=== PATIENT | female | born 1945 | race Caucasian/White ===

== ENCOUNTER → 2017-01-10 | Outpatient (CLI) | payer BC, MEDICARE, OTHER ==
[2016-07-27 08:14] VITALS: BP 135/75
--- NOTE | 2017-01-10 15:19 | RAD ---
DATE: 01/10/2017 EXAM: DIGITAL DIAGNOSTIC LT, BREAST LEFT HISTORY: Breast nodule COMPARISON: 08/30/2015 This study was interpreted with the benefit of Computerized Aided Detection (CAD). The breast parenchyma is heterogeneously dense, which could reduce the sensitivity of mammography. Breast parenchyma level C. FINDINGS: 2-D and 3-D tomosynthesis imaging was performed in CC and MLO projections. The fibroglandular pattern is nodular in character. The majority of these densities are unchanged. There are unchanged lymph node type densities projected over the axillary tail region of the left breast. There is a 8 mm nodule with associated architectural distortion and mild spiculation now evident at the 4:00 location. This is best visualized on axial tomograms #16 and oblique tomogram #17. No other new or enlarging breast density is seen. Benign type calcifications are present. No suspicious microcalcifications have developed. Left breast ultrasound, 01/10/2017: A targeted ultrasound exam of the left breast was performed. We first targeted the palpable lesion at the 1:00 location. At that level there is a 4 mm subcutaneous nodule abutting the undersurface of the skin. It is rounded and demonstrates heterogeneous internal echoes. No color flow is seen within this structure. It may be a skin related lesion such as a sebaceous cyst. We then targeted the suspicious nodule seen on the mammograms at the 4:00 location. Approximately 2.5 cm from the nipple at the 4:00 location there is a 7 mm hypoechoic nodule which demonstrates internal color flow. Some of its margins are smooth while others are slightly irregular. This probably corresponds to the suspicious nodule seen on the mammograms. There is a nearby 8-9 mm nodule at the 3:30 location in the left breast which demonstrates smooth margins and posterior acoustic shadowing. There is no internal color flow. This appearance suggests a simple cyst. IMPRESSION: 1. Slightly spiculated solid nodule at the 4:00 location, suspicious for malignancy. Ultrasound-guided biopsy is suggested for further evaluation. 2. Small complex superficial subcutaneous nodule at the 1:00 location which corresponds to the area of palpable concern. This may represent a skin related lesion such as a sebaceous cyst. 3. Several other stable left breast nodules are present including a simple cyst at the 3:30 location. Note: The cardiopulmonary technologist notified the patient of the recommendation for biopsy, at the time of this exam. BI-RADS CATEGORY: 4 SUSPICIOUS ABNORMALITY- BIOPSY SHOULD BE CONSIDERED RECOMMENDED FOLLOW-UP: BIO BIOPSY RECOMMENDED PQRS compliance statement: Patient information was entered into a reminder system with a target due date for the next mammogram. Mammography is a sensitive method for finding small breast cancers, but it does not detect them all and is not a substitute for careful clinical examination. A negative mammogram does not negate a clinically suspicious finding and should not result in delay in biopsying a clinically suspicious abnormality. "Our facility is accredited by the [employer] Mammography Program."
== END | disposition home or self-care (01) ==
LOC: MAMMO 13:06
PROVIDERS: ATTEND Family Medicine
DX: N63 Unspecified lump in breast (principal); N64.89 Other specified disorders of breast; R22.9 Localized swelling, mass and lump, unspecified
CPT/HCPCS: 76641; G0206; 77065

== ENCOUNTER → 2017-07-16 | Outpatient (CLI) | payer BC, MEDICARE, OTHER ==
[2016-07-27 08:14] VITALS: BP 135/75
[~2017-07-16] MED LIST: ALLO100T PO; AMLO5TAB2 PO; ANAS1TAB PO; APIX5TAB3 PO; ASPI-630 PO; CARV25TA2 PO; CLON0.5T3 PO; CLON1PAT3 TD; FERR159T3 PO; FLUT9.9S NS; GLUC500T10 PO; IOHEXOL 300 MG/ML 75 ML VIAL. IV ONE; LEVO112T4 PO; MULT1TAB52 PO; OMEG-33 PO; OMEP20TA63 PO; PRAV20TA2 PO; TRIA1TAB5 PO; VITA400C36 PO
--- NOTE | 2017-07-16 10:50 | RAD ---
Examination: CT chest with IV contrast History: History of chronic cough, congestion, shortness of breath, chest tightness Comparison: None available Technique: Axial CT images of the chest were performed with IV contrast. Coronal and sagittal reformats are performed PQRS Compliance Statement: One or more of the following individualized dose reduction techniques were utilized for this examination: 1. Automated exposure control 2. Adjustment of the mA and/or kV according to patient size 3. Use of iterative reconstruction technique Findings: The visualized thyroid gland demonstrates calcifications in the right and left lobes of thyroid gland. The central airways are patent. The caliber of the aorta grossly appears unremarkable. Subtle filling defects identified in the segmental branches of the right upper lobe and lower lobe pulmonary arteries. Minimal bibasal lung atelectasis. Otherwise the lungs are clear. Moderate hiatal hernia is identified. The visualized liver, adrenals grossly appears unremarkable. Moderate aortic atherosclerosis. Moderate degenerative changes thoracic spine. 4.7 x 3.3 cm cystic structure identified in the left breast region likely postoperative seroma. Impression: 1. Faint filling defects identified in the right upper lobe and lower lobe segmental branches of the pulmonary arteries likely age indeterminate pulmonary emboli. These can be better evaluated with CT angiogram. 2. Minimal bibasal lung atelectasis. 3. Left breast postoperative seroma measuring 4.7 cm. 4. Moderate size hiatal hernia. Report was called to Refugio at ordering physician's office at time of dictation.
== END | disposition home or self-care (01) ==
LOC: CT 08:56
PROVIDERS: ATTEND Physician Assistant
DX: J98.11 Atelectasis (principal); K44.9 Diaphragmatic hernia without obstruction or gangrene; Z98.890 Other specified postprocedural states
CPT/HCPCS: 71260; Q9967

== ENCOUNTER 2017-07-17 12:41 | Observation (INO) | payer MEDICARE ==
[2017-07-17] VITALS (9 sets, daily range): BP systolic 97–154; BP diastolic 55–81
[~2017-07-17] VITALS: Ht 157.5 cm; Wt 85.4 kg
[2017-07-17] MEDS ORDERED: HEPARIN for IV BOLUS 10,000 UNIT/10 ML VIAL. IV PRN ×2 (15:00)
[2017-07-17] MEDS ORDERED: HEPARIN 25,000UTS/500ML PREMIX 500 ML IV PRN (15:00)
[2017-07-17 15:28] LABS: BASO # 0.1 x10^3/uL (0.0-0.2); BASO % 1 % (0-3); EOS # 0.1 x10^3/uL (0.0-0.7); EOS % 1 % (0-3); HEMATOCRIT 38.8 % (36.0-47.0); HEMOGLOBIN 12.7 g/dL (12.0-15.5); LYMPH # 3.8 x10^3/uL (1.0-4.8); LYMPH % 27 % (24-48); MEAN CORPUSCULAR HEMOGLOBIN 30 pg (25-35); MEAN CORPUSCULAR HGB CONC 33 g/dL (31-37); MEAN CORPUSCULAR VOLUME 91 fL (79-100); MONO # 1.4 x10^3/uL (0.0-1.1); MONO % 10 % (0-9); NEUT # 8.7 x10^3uL (1.8-7.7); NEUT % 62 % (31-73); PLATELET COUNT 264 x10^3/uL (140-400); RED BLOOD COUNT 4.27 x10^6/uL (3.50-5.40); RED CELL DISTRIBUTION WIDTH 17.1 % (11.5-14.5)
[2017-07-17] MEDS ORDERED: HEPARIN for IV BOLUS 10,000 UNIT/10 ML VIAL. IV ONE (15:30)
[2017-07-17 15:37] LABS: ALBUMIN 3.3 g/dL (3.4-5.0); ALBUMIN/GLOBULIN RATIO 0.9 (1.0-1.7); CALCIUM 10.1 mg/dL (8.5-10.1); GFR 54.7; MAGNESIUM 1.5 mg/dL (1.8-2.4); POTASSIUM 3.2 mmol/L (3.5-5.1); TOTAL BILIRUBIN 0.5 mg/dL (0.2-1.0)
[2017-07-17] MEDS ORDERED: CARV25TA2 PO (17:26)
[2017-07-17] MEDS ORDERED: ANAS1TAB PO (17:26)
[2017-07-17] MEDS ORDERED: OMEG-33 PO (17:26)
[2017-07-17] MEDS ORDERED: FLUT9.9S NS (17:26)
[2017-07-17] MEDS ORDERED: VITA400C36 PO (17:26)
[2017-07-17] MEDS ORDERED: AMLO5TAB2 PO (17:26)
[2017-07-17] MEDS ORDERED: ASPI-630 PO (17:26)
[2017-07-17] MEDS ORDERED: PRAV20TA2 PO (17:26)
[2017-07-17] MEDS ORDERED: CLON1PAT3 TD (17:26)
[2017-07-17] MEDS ORDERED: MULT1TAB52 PO (17:26)
[2017-07-17] MEDS ORDERED: CLON0.5T3 PO (17:26)
[2017-07-17] MEDS ORDERED: LEVO112T4 PO (17:26)
[2017-07-17] MEDS ORDERED: GLUC500T10 PO (17:26)
[2017-07-17] MEDS ORDERED: TRIA1TAB5 PO (17:26)
[2017-07-17] MEDS ORDERED: FERR159T3 PO (17:26)
[2017-07-17] MEDS ORDERED: OMEP20TA63 PO (17:26)
[2017-07-17] MEDS ORDERED: ALLO100T PO ×2 (17:42)
[2017-07-17] MEDS ORDERED: CONTRAST GIVEN MC PRN (18:15)
[2017-07-17] MEDS ORDERED: ZOLPIDEM 5 MG TABLET. PO PRN (18:45)
[2017-07-17] MEDS: GLUCOSAMINE 500 MG CAPSULE PO SCH (20:49)
[2017-07-17] MEDS: OMEGA-3 FATTY ACIDS/FISH OIL 1,000 MG CAPSULE. PO SCH (20:49)
[2017-07-17] MEDS ORDERED: ASPIRIN 81 MG TAB.CHEW PO SCH (21:00)
[2017-07-17] MEDS ORDERED: ANASTROZOLE 1 MG TABLET PO SCH (21:00)
[2017-07-17] MEDS ORDERED: ALLOPURINOL 100 MG TABLET. PO SCH (21:00)
[2017-07-17] MEDS ORDERED: PRAVASTATIN 20 MG TABLET. PO SCH (21:00)
[2017-07-17] MEDS: CARVEDILOL 12.5 MG TABLET PO SCH (21:04)
[2017-07-18] VITALS (13 sets, daily range): BP systolic 91–126; BP diastolic 46–71
[2017-07-18 06:50] LABS: CALCIUM 9.9 mg/dL (8.5-10.1); CREATININE 0.9 mg/dL (0.6-1.0); GFR 61.7; POTASSIUM 3.3 mmol/L (3.5-5.1)
[2017-07-18] MEDS ORDERED: LEVOTHYROXINE 112 MCG TABLET PO SCH (07:00)
[2017-07-18 07:38] LABS: BASO # 0.2 x10^3/uL (0.0-0.2); BASO % 1 % (0-3); EOS # 0.3 x10^3/uL (0.0-0.7); EOS % 2 % (0-3); HEMATOCRIT 39.3 % (36.0-47.0); LYMPH # 5.1 x10^3/uL (1.0-4.8); LYMPH % 42 % (24-48); MEAN CORPUSCULAR HEMOGLOBIN 30 pg (25-35); MEAN CORPUSCULAR HGB CONC 33 g/dL (31-37); MEAN CORPUSCULAR VOLUME 91 fL (79-100); MONO # 1.5 x10^3/uL (0.0-1.1); MONO % 12 % (0-9); NEUT # 5.2 x10^3uL (1.8-7.7); NEUT % 43 % (31-73); PLATELET COUNT 244 x10^3/uL (140-400); RED BLOOD COUNT 4.31 x10^6/uL (3.50-5.40); RED CELL DISTRIBUTION WIDTH 16.8 % (11.5-14.5); WHITE BLOOD COUNT 12.1 x10^3/uL (4.0-11.0)
[2017-07-18] MEDS ORDERED: FERROUS SULFATE 325 MG TABLET. PO SCH (08:00)
[2017-07-18] MEDS: CARVEDILOL 12.5 MG TABLET PO SCH (08:39)
[2017-07-18] MEDS: OMEGA-3 FATTY ACIDS/FISH OIL 1,000 MG CAPSULE. PO SCH (08:39)
[2017-07-18] MEDS: GLUCOSAMINE 500 MG CAPSULE PO SCH (08:40)
[2017-07-18] MEDS ORDERED: PANTOPRAZOLE 40 MG TABLET. PO SCH (09:00)
[2017-07-18] MEDS ORDERED: VITAMIN E. 400 UNIT CAPSULE. PO SCH (09:00)
[2017-07-18] MEDS ORDERED: FLUTICASONE 50MCG/NASAL SPRAY 16GM BOTTLE. NS SCH (09:00)
[2017-07-18] MEDS ORDERED: TRIAMTERENE/HCTZ 75/50MG TABLET. PO SCH (09:00)
[2017-07-18] MEDS ORDERED: MULTIVITAMIN with MINERAL TABLET. PO SCH (09:00)
[2017-07-18] MEDS ORDERED: ALLOPURINOL 300 MG TABLET. PO SCH (09:00)
--- NOTE | 2017-07-18 14:42 | RAD ---
Bilateral lower extremity venous ultrasound, 07/18/2017: History: Pulmonary emboli, shortness of breath Duplex evaluation of the deep veins in the lower extremities was performed including grayscale, color-flow and spectral Doppler analysis. The femoral and popliteal veins demonstrate normal compressibility and normal responses to distal augmentation maneuvers. Color imaging of those vessels shows no evidence of intraluminal clot. The visualized deep veins in both calves are patent. IMPRESSION: There is no sonographic evidence of deep vein thrombosis in either lower extremity.
[2017-07-18] MEDS ORDERED: amLODIPine BESYLATE 5 MG TABLET PO SCH (16:00)
[2017-07-18] MEDS ORDERED: APIXABAN 5 MG TABLET. PO SCH (16:00)
[2017-07-18] MEDS ORDERED: APIX5TAB3 PO (16:30)
[2017-07-20] MEDS ORDERED: cloNIDine TTS-3 1 PATCH PATCH TD SCH (16:00)
== END 2017-07-18 18:30 | disposition home or self-care (01) ==
LOC: ICU 13:42 → INTOOBSV 13:42
PROVIDERS: ADMIT Family Medicine; ATTEND Family Medicine
DX: R06.02 Shortness of breath (principal); I10 Essential (primary) hypertension; E21.3 Hyperparathyroidism, unspecified; E03.9 Hypothyroidism, unspecified; K21.9 Gastro-esophageal reflux disease without esophagitis; M19.90 Unspecified osteoarthritis, unspecified site; I25.10 Atherosclerotic heart disease of native coronary artery without angina pectoris
CPT/HCPCS: 36415; 80048; 80053; 83605; 83735; 85025; 85379; 85610; 85730; 87641; 93970; 96365; 96366; 96375; 99285; G0378; J1644; G0379

== ENCOUNTER → 2017-07-17 | Outpatient (CLI) | payer MEDICARE ==
[2016-07-27 08:14] VITALS: BP 135/75
--- NOTE | 2017-07-17 11:58 | RAD ---
CTA of the chest with contrast, 07/17/2017: History: Cough, shortness of breath, abnormal CT scan Multidetector CT imaging was performed following an IV bolus injection of iodinated contrast material. Multiplanar reconstructions were produced including coronal MIP images. The main and lobar pulmonary arteries are unremarkable. There are small nonocclusive filling defects within segmental and subsegmental pulmonary arteries in the right lower lobe as best seen on axial image 73 of series #5. There is a small filling defect within a segmental pulmonary artery in the right upper lobe as seen on images 55 and 56 of series #5. No definite left-sided pulmonary emboli are seen. There is moderate calcific plaquing of the thoracic aorta without evidence of aneurysm. No mediastinal or hilar adenopathy is seen. There is a moderate size hiatal hernia. There is mild linear atelectasis and/or scarring in the dependent aspects of the lungs. No significant pulmonary consolidation is seen. There is no evidence of pleural fluid. Again noted is a fluid collection the left breast with adjacent surgical clips compatible with a postsurgical seroma. A moderate size left renal cyst is present. IMPRESSION: 1. Several small pulmonary emboli are identified in the right lower and upper lobes as described above. 2. Moderate sized hiatal hernia. 3. Left breast fluid collection compatible with a postoperative seroma. Note: The medical laboratory technologist is currently calling this report to Dr. Clark at 11:55 AM on 07/17/2007. PQRS Compliance Statement: One or more of the following individualized dose reduction techniques were utilized for this examination: 1. Automated exposure control 2. Adjustment of the mA and/or kV according to patient size 3. Use of iterative reconstruction technique
== END | disposition home or self-care (01) ==
LOC: CT 10:58
PROVIDERS: ATTEND Family Medicine
DX: I26.99 Other pulmonary embolism without acute cor pulmonale (principal); K44.9 Diaphragmatic hernia without obstruction or gangrene; N28.1 Cyst of kidney, acquired; N64.89 Other specified disorders of breast
CPT/HCPCS: 71275; Q9967

== ENCOUNTER → 2017-12-05 | Outpatient (CLI) | payer MEDICARE ==
[2017-07-18 16:07] VITALS: BP 126/70
[~2017-12-05] MED LIST changes: +CLON0.5T11 PO; -CLON0.5T3 PO; -IOHEXOL 300 MG/ML 75 ML VIAL. IV ONE
--- NOTE | 2017-12-05 14:52 | RAD ---
Renal ultrasound 12/05/2017 INDICATION: Right flank pain. History of urinary tract infection. Abnormal renal function tests. COMPARISON STUDY: CT of the chest July 17, 2017. Discussion: Ultrasound evaluation of the kidneys performed. Static images show defects. Kidney measures 10.2 x 5.2 x 4.3 cm. There is a simple appearing cyst within the inferior pole right kidney measuring up to 3.2 cm in diameter. Right kidney demonstrates no hydronephrosis, nephrolithiasis, or acute degenerative uropathy. Blood flow to the right kidney is unremarkable. Left kidney measures 10.7 x 5.7 x 5.2 cm. There is a simple appearing 6.8 cm cyst along the inferior pole of the left kidney. In the mid left kidney there is a solid-appearing masslike structure measuring 2.8 cm in diameter. Internal blood flow is present on color Doppler imaging. There is a very small nonspecific hypoechoic lesion in the mid left kidney measuring about 8 mm in diameter. Whether this is cystic or solid cannot be determined on the basis of this study. Adjacent to the largest cyst is what appears to be a second cyst measuring approximately 2.1 cm in diameter. No evidence of hydronephrosis or nephrolithiasis is seen on the left. Limited visualization of the bladder is unremarkable. Ureteral jets are visualized bilaterally. IMPRESSION: 1. Simple appearing right renal cyst. Otherwise unremarkable appearance of the Right kidney. 2. 2.8 cm masslike structure in the mid left kidney. This is not appreciated on prior CT imaging from July 2017. It is uncertain based on available exams if this is artifactual or represents true mass. There is also 0.8 cm hypoechoic lesion in the mid left kidney which could be solid or cystic based on ultrasound characteristics. A multi phase CT exam of the abdomen is recommended for further characterization. Electronically signed by: Oswaldo Cannon MD (12/05/2017 2:50 PM) [id number]
== END | disposition home or self-care (01) ==
LOC: US 08:49
PROVIDERS: ATTEND Nurse Practitioner Family
DX: N39.0 Urinary tract infection, site not specified (principal); I10 Essential (primary) hypertension; E21.3 Hyperparathyroidism, unspecified; E78.00 Pure hypercholesterolemia, unspecified; E03.9 Hypothyroidism, unspecified; K21.9 Gastro-esophageal reflux disease without esophagitis; R35.0 Frequency of micturition
CPT/HCPCS: 76770

== ENCOUNTER → 2017-12-19 | Outpatient (CLI) | payer MEDICARE ==
[2017-07-18 16:07] VITALS: BP 126/70
[~2017-12-19] MED LIST changes: +IOHEXOL 300 MG/ML 75 ML VIAL. IV ONE
--- NOTE | 2017-12-19 10:12 | RAD ---
CT of the abdomen with and without contrast, 12/19/2017: HISTORY: Evaluate renal mass Multidetector CT imaging was performed prior to and following an IV bolus injection of iodinated contrast material. The postcontrast scans were obtained in arterial, portal venous and delayed excretory phases. No oral contrast material was administered for this exam. There is mild bilateral renal cortical scarring. There is a 2.9 cm cyst in the lower pole of the right kidney. There is a tiny faint renal calcification along its lateral rim. A 7 mm cortical low-density lesion in the lower pole the right kidney is compatible with an additional cyst. A 7.5 cm simple cyst is present in the lower pole of the left kidney. Several other tiny subcentimeter low-density cortical lesions in the left kidney are also probably cysts. No solid renal mass is evident. The kidneys show no evidence of obstruction. A large hiatal hernia is present with approximately one half of the stomach lying above the level the diaphragmatic hiatus. There is mild bibasilar linear atelectasis and/or scarring. The gallbladder is surgically absent. No hepatic abnormality is seen. There are several small cystic-appearing foci in the pancreatic head. The pancreatic body and tail are absent, presumably on a postsurgical basis. 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 Moderate aortic calcific plaquing is present without evidence of aneurysm. No retroperitoneal or mesenteric adenopathy is seen. The visualized bowel loops are unremarkable. No free fluid is evident in the abdomen. Moderate multilevel degenerative changes are present in the spine. There is a grade 1 spondylolisthesis at L4-5 due to extensive facet joint arthropathy. There is severe degenerative disc disease at T12-L1 and L1-2 with a slight retrolisthesis at L1-2. IMPRESSION: 1. Bilateral renal cysts. 2. Large hiatal hernia. 3. 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 Correlation with the patient's surgical history is suggested. 4. Small cysts in the pancreatic head. A neoplastic etiology such as an intraductal papillary mucinous neoplasm cannot be excluded. CT or MR surveillance may be prudent. 5. Extensive degenerative change in the lumbar spine. PQRS Compliance Statement: One or more of the following individualized dose reduction techniques were utilized for this examination: 1. Automated exposure control 2. Adjustment of the mA and/or kV according to patient size 3. Use of iterative reconstruction technique Electronically signed by: Ramesh López MD (12/19/2017 10:08 AM) [facility]
== END | disposition home or self-care (01) ==
LOC: CT 08:02
PROVIDERS: ATTEND Family Medicine
DX: N28.1 Cyst of kidney, acquired (principal); K44.9 Diaphragmatic hernia without obstruction or gangrene; M51.35 Other intervertebral disc degeneration, thoracolumbar region; M43.16 Spondylolisthesis, lumbar region; M12.88 Other specific arthropathies, not elsewhere classified, other specified site; I10 Essential (primary) hypertension; E78.00 Pure hypercholesterolemia, unspecified; E21.3 Hyperparathyroidism, unspecified; K21.9 Gastro-esophageal reflux disease without esophagitis; Z79.01 Long term (current) use of anticoagulants
CPT/HCPCS: 74170

== ENCOUNTER → 2018-03-05 | Outpatient (CLI) | payer MEDICARE ==
[2017-07-18 16:07] VITALS: BP 126/70
[~2018-03-05] MED LIST changes: -AMLO5TAB2 PO; +AMLO5TAB7 PO
--- NOTE | 2018-03-05 12:34 | RAD ---
Examination: CT angiography chest HISTORY: History of shortness of breath, history of pulmonary embolism COMPARISON: 07/17/2017 TECHNIQUE: Axial CT angiographic images were performed with IV contrast. Coronal and sagittal 3-D MIP reformats are performed. Exposure: One or more of the following individualized dose reduction techniques were utilized for this examination: 1. Automated exposure control 2. Adjustment of the mA and/or kV according to patient size 3. Use of iterative reconstruction technique FINDINGS: The central airways are patent. The heart size grossly appears unremarkable. Moderate aortic atherosclerosis. There is no evidence of filling defect identified in the main pulmonary artery trunk and right and left main pulmonary arteries and the visualized lobar, segmental branches of the pulmonary arteries. There is a 5 mm pulmonary nodule identified in the right middle lobe of the lung. Patchy airspace opacities identified in the bibasilar lungs. There is a small focal infiltrate or nodule measuring 6 mm identified in the left lingula. No evidence of pleural effusion or pneumothorax. Large hiatal hernia. The visualized liver, adrenals grossly appears unremarkable. Moderate degenerative changes thoracic spine. Few calcifications identified in the left breast. IMPRESSION: 1. No evidence of pulmonary embolism. 2. Mild bibasilar lung airspace opacities likely atelectasis or infiltrates. 3. A 5 mm pulmonary nodule identified in the right middle lobe of the lung and a focal infiltrate or nodule measuring 6 mm identified in the left lingula. Recommend close interval follow-up examination per Fleischner Society guidelines with a follow-up CT in 3-6 months. 4. Large hiatal hernia. Electronically signed by: Jose Jara MD (03/05/2018 12:31 PM) [id number]
== END | disposition home or self-care (01) ==
LOC: CT 09:11
PROVIDERS: ATTEND Internal Medicine Pulmonary Disease
DX: R06.02 Shortness of breath (principal); R91.1 Solitary pulmonary nodule; I70.0 Atherosclerosis of aorta; K44.9 Diaphragmatic hernia without obstruction or gangrene; I10 Essential (primary) hypertension; E78.00 Pure hypercholesterolemia, unspecified; E21.3 Hyperparathyroidism, unspecified; Z86.711 Personal history of pulmonary embolism; Z79.01 Long term (current) use of anticoagulants
CPT/HCPCS: 71275; Q9967

== ENCOUNTER → 2018-07-31 | Outpatient (CLI) | payer MEDICARE ==
[2017-07-18 16:07] VITALS: BP 126/70
[~2018-07-31] MED LIST changes: +AMLO5TAB10 PO; -AMLO5TAB7 PO; -IOHEXOL 300 MG/ML 75 ML VIAL. IV ONE
[2018-07-31 15:14] LABS: ALBUMIN 3.7 g/dL (3.4-5.0); CALCIUM 10.3 mg/dL (8.5-10.1); GFR 54.5; HEMATOCRIT 40.2 % (36.0-47.0); HEMOGLOBIN 13.1 g/dL (12.0-15.5); RED BLOOD COUNT 4.38 x10^6/uL (3.50-5.40); TOTAL BILIRUBIN 0.5 mg/dL (0.2-1.0); TOTAL PROTEIN 7.4 g/dL (6.4-8.2); WHITE BLOOD COUNT 8.6 x10^3/uL (4.0-11.0)
[2018-07-31 15:15] LABS: BASO # 0.1 x10^3/uL (0.0-0.2); BASO % 1 % (0-3); EOS # 0.4 x10^3/uL (0.0-0.7); EOS % 5 % (0-3); LYMPH # 2.3 x10^3/uL (1.0-4.8); LYMPH % 27 % (24-48); MEAN CORPUSCULAR HEMOGLOBIN 30 pg (25-35); MEAN CORPUSCULAR HGB CONC 33 g/dL (31-37); MEAN CORPUSCULAR VOLUME 92 fL (79-100); MONO % 12 % (0-9); NEUT # 4.8 x10^3uL (1.8-7.7); NEUT % 56 % (31-73); PLATELET COUNT 249 x10^3/uL (140-400); RED CELL DISTRIBUTION WIDTH 17.1 % (11.5-14.5)
[2018-08-01 00:06] LABS: THYROPEROXIDASE ANTIBODY 7 IU/mL (0-34)
[2018-08-01 03:07] LABS: CALCIUM PTH 10.4 mg/dL (8.7-10.3); CREATININE PTH 0.98 mg/dL (0.57-1.00); PTH INTACT 61 pg/mL (15-65)
[2018-08-01 10:15] LABS: FREE T4 1.15 ng/dL (0.76-1.46); THYROID STIM HORMONE (TSH) 1.564 uIU/mL (0.358-3.740)
== END | disposition home or self-care (01) ==
LOC: LAB 13:48
PROVIDERS: ATTEND Nurse Practitioner Family
DX: E83.52 Hypercalcemia (principal); R53.83 Other fatigue; R35.0 Frequency of micturition
CPT/HCPCS: 80053; 83970; 84439; 84443; 84481; 85025; 86376

== ENCOUNTER → 2018-09-03 | Outpatient (CLI) | payer MEDICARE ==
[2017-07-18 16:07] VITALS: BP 126/70
== END | disposition home or self-care (01) ==
LOC: LAB 09:27
PROVIDERS: ATTEND Internal Medicine Cardiovascular Disease
DX: E78.49 Other hyperlipidemia (principal)
CPT/HCPCS: 80061

== ENCOUNTER → 2018-09-18 | Outpatient (CLI) | payer MEDICARE ==
[2017-07-18 16:07] VITALS: BP 126/70
--- NOTE | 2018-09-18 13:05 | RAD ---
Examination: CT chest without contrast HISTORY: History of lung nodule follow-up. COMPARISON: 03/05/2018 TECHNIQUE: Axial CT images of the chest were performed without contrast. Coronal and sagittal reformats are performed Exposure: One or more of the following individualized dose reduction techniques were utilized for this examination: 1. Automated exposure control 2. Adjustment of the mA and/or kV according to patient size 3. Use of iterative reconstruction technique FINDINGS: The visualized thyroid gland demonstrates a small calcification in the left lobe measuring 4.5 mm. The central airways are patent Large hiatal hernia is identified. The heart size grossly appears unremarkable There is a 6 mm nodule identified in the right middle lobe of the lung identified. Compared to prior exams appears slightly more prominent in part due to difference in technique. Minimal groundglass opacity identified in the right lung base similar to prior exam. 6 mm groundglass opacity identified in the left lingula similar to prior exam The visualized noncontrasted liver, grossly appears unremarkable. There is a density identified in the mid abdomen best visualized on series 2 image #370 measuring 3.3 cm on centimeters it is only partially visualized could be a bowel loop. Recommend CT abdomen for further evaluation. IMPRESSION: 1. Right middle lobe nodule measuring 6 mm. Compared to prior exams appears minimally prominent most likely due to difference in technique compared to prior exam. Close interval follow-up examination is recommended document stability. 2. Unchanged 6 mm groundglass opacity and right lung base airspace opacities. 3. There is a density identified in the mid abdomen best visualized on series 2 image #370 measuring 3.3 cm , it is only partially visualized could be a bowel loop or mass. Recommend CT abdomen for further evaluation. 4. Large hiatal hernia. Electronically signed by: Jose Jara MD (09/18/2018 1:01 PM) [id number]
== END | disposition home or self-care (01) ==
LOC: CT 09:29
PROVIDERS: ATTEND Internal Medicine Pulmonary Disease
DX: R91.1 Solitary pulmonary nodule (principal); K44.9 Diaphragmatic hernia without obstruction or gangrene
CPT/HCPCS: 71250

== ENCOUNTER → 2019-01-27 | Outpatient (CLI) | payer MEDICARE ==
[2017-07-18 16:07] VITALS: BP 126/70
[2019-01-27 16:49] LABS: BASO # 0.1 x10^3/uL (0.0-0.2); BASO % 1 % (0-3); EOS # 0.3 x10^3/uL (0.0-0.7); EOS % 3 % (0-3); HEMATOCRIT 37.3 % (36.0-47.0); LYMPH # 2.1 x10^3/uL (1.0-4.8); LYMPH % 23 % (24-48); MEAN CORPUSCULAR HEMOGLOBIN 30 pg (25-35); MEAN CORPUSCULAR HGB CONC 32 g/dL (31-37); MEAN CORPUSCULAR VOLUME 95 fL (79-100); MONO % 11 % (0-9); NEUT # 5.5 x10^3uL (1.8-7.7); NEUT % 62 % (31-73); PLATELET COUNT 232 x10^3/uL (140-400); RED BLOOD COUNT 3.94 x10^6/uL (3.50-5.40); RED CELL DISTRIBUTION WIDTH 17.4 % (11.5-14.5); WHITE BLOOD COUNT 8.9 x10^3/uL (4.0-11.0)
[2019-01-27 16:56] LABS: BILIRUBIN,URINE NEG (NEG); CLARITY,URINE CLOUDY; COLOR,URINE YELLOW; GLUCOSE,URINE NEG (NEG)
[2019-01-27 16:57] LABS: AMORPHOUS SEDIMENT,UR PRESENT /HPF; BACTERIA,URINE MOD /HPF (0-FEW); GRANULAR CASTS,URINE FEW /HPF; NITRITE,URINE NEG (NEG); RBC,URINE OCC /HPF (0-2); SQUAMOUS EPITHELIAL CELL,UR MOD /LPF; UROBILINOGEN,URINE 0.2 mg/dL (0.2 mg/dL)
[2019-01-27 17:01] LABS: ALBUMIN 3.5 g/dL (3.4-5.0); CALCIUM 10.3 mg/dL (8.5-10.1); CREATININE 1.4 mg/dL (0.6-1.0); GFR 36.9; POTASSIUM 4.2 mmol/L (3.5-5.1); TOTAL BILIRUBIN 0.6 mg/dL (0.2-1.0)
[2019-01-27 17:54] LABS: SEDIMENTATION RATE 8 (0-25)
[2019-01-28 00:08] LABS: HEMOGLOBIN A1C 5.5 % (4.8-5.6)
== END | disposition home or self-care (01) ==
LOC: LAB 15:19
PROVIDERS: ATTEND Family Medicine
DX: M17.0 Bilateral primary osteoarthritis of knee (principal); E04.8 Other specified nontoxic goiter; D72.89 Other specified disorders of white blood cells; R53.83 Other fatigue
CPT/HCPCS: 36415; 80053; 81001; 83036; 84443; 85025; 85651; 87086

== ENCOUNTER → 2021-06-07 | Outpatient (CLI) | payer MEDICARE ==
[2017-07-18 16:07] VITALS: BP 126/70
[~2021-06-07] MED LIST changes: +AMLO-186 PO; -AMLO5TAB10 PO; -CLON0.5T11 PO; +CLON0.5T4 PO; +MULT-445 PO; -MULT1TAB52 PO; +VITA-8 PO; -VITA400C36 PO
== END ==
LOC: LAB 09:12
PROVIDERS: ATTEND Internal Medicine Cardiovascular Disease
DX: E78.49 Other hyperlipidemia (principal)
CPT/HCPCS: 80061

== ENCOUNTER 2021-07-07 03:01 | Emergency (ER) | payer MEDICARE ==
[~2021-07-07] VITALS: Ht 157.5 cm; Wt 85.9 kg
--- NOTE | 2021-07-07 03:04 | PHYS DOC ---
Past History Past Medical History: Cancer, High Cholesterol, Hypertension, Hypothyroid, Kidney Stones Past Surgical History: Cholecystectomy, Other Past Surgical History Lumpectomy- and Radiation- Breast Cancer Alcohol Use: Occasionally Drug Use: None General Adult HPI: HPI: ",, I think I may have a kidney stone... ".. " I have Lt flank pain.. it is like when I had a kidney stone years ago..." Patient is a 75 year old female who presents with above hx and complaints left flank pain that started approximately 2200 hrs. last night. Pain is currently rated 8 out of 10. It is mid flank and radiates to her groin area. Patient describes the pain as previous kidney stone pain. Patient denies any trauma. Patient has had 3 Covid vaccinations as well as flu vaccination. Patient denies any recent travel. No specific ill contacts other than her is currently ill. Patient has significant past medical history of breast cancer status post lumpectomy and radiation treatments 4 years ago. Patient has history of. Kidney stones, elevated cholesterol, hypertension, hypothyroidism, pulmonary nodule, hiatal hernias, GERD, and UTIs. Pt. does follow at [facility]. Review of Systems: Review of Systems: Constitutional: Denies fever or chills Eyes: Denies change in visual acuity HENT: Denies nasal congestion or sore throat Respiratory: Denies cough or shortness of breath Cardiovascular: Denies chest pain or edema GI: Planes of left flank abdominal pain, nausea,. Denies vomiting, bloody stools or diarrhea : Denies dysuria Musculoskeletal: Complains of left flank back pain . Integument: Denies rash Neurologic: Denies headache, focal weakness or sensory changes Endocrine: Denies polyuria or polydipsia Lymphatic: Denies swollen glands Psychiatric: Denies depression or anxiety Family History: Family History: Noncontributory Current Medications: Current Meds: See nursing for home meds Allergies: Allergies: Allergies Coded Allergies Type Severity Reaction Last Updated Verified I S O L A T I O N *CONTACT* Allergy Unknown 07/21/17 Yes NKMA Allergy Unknown 07/21/17 Yes Physical Exam: PE: Constitutional:moderate acute distress, non-toxic appearance. [] HENT: Normocephalic, atraumatic, bilateral external ears normal, oropharynx moist, no oral exudates, nose normal. [] Eyes: PERRLA, EOMI, conjunctiva normal, no discharge. Glasses. Neck: Normal range of motion, no tenderness, supple, no stridor. [] Cardiovascular:Heart rate regular rhythm, no murmur []. PMI to lt. Lungs & Thorax: Bilateral breath sounds equal at apex, with bibasilar crackles on auscultation []. Breast surgical scars Abdomen: Bowel sounds decreased, , soft, no tenderness, no masses, no pulsatile masses. Old surgery scars. Distended. Skin: Warm, dry, no erythema, no rash. [] Back: No tenderness, Lt CVA tenderness. [] Kyphosis and scoliosis Extremities: No tenderness, no cyanosis, no clubbing, ROM intact, no edema. No cording. Neurologic: Alert and oriented X 3, normal motor function, normal sensory function, no focal deficits noted. [] Psychologic: Affect anxious, judgement normal, mood normal. [] EKG: EKG: My interpretation EKG shows sinus rhythm at 74 bpm. Does have some inferior changes but no findings of acute STEMI of contralateral changes. Does have a Q- wave in lead III and S in lead I. Abnormal EKG [] Radiology/Procedures: Radiology/Procedures: [[place] [id number] IMAGING REPORT Signed PATIENT: RENITA VAUGHAN ACCOUNT: [id number] : 1945 LOCATION: ER AGE: 75 SEX: F EXAM STATUS: REG ER ORD. PHYSICIAN: RHIANNA PÉREZ MD REASON: Lt. flank pain and abd., pain, hx breast, OMNI 300, 75ml PROCEDURE: CT CHEST ABD PELVIS W/CONTRAST PQRS Compliance Statement: One or more of the following individualized dose reduction techniques were utilized for this examination: 1. Automated exposure control 2. Adjustment of the mA and/or kV according to patient size 3. Use of iterative reconstruction technique CT CHEST+ABD+PELVIS W Clinical Indication: Reason: Lt. flank pain and abd., pain, hx breast, Comparison: CT chest without contrast September 18, 2018. CT abdomen with contrast December 19, 2017. Technique: Helical CT imaging of the chest, abdomen and pelvis is performed after 75 cc of Omnipaque 300 IV contrast. Oral contrast not administered. Findings: Left axillary surgical clips. There are surgical clips in the left breast. There is no central pulmonary embolus or thoracic aortic dissection. Great vessels are normal caliber. There is no mediastinal or hilar adenopathy. The cardiac size is normal, no pericardial effusion. There is a moderate sized hiatal her kaycee. No pleural abnormality is seen. The central airways are patent. 6 mm right middle lobe pulmonary nodule is unchanged, image 51. Nodule is therefore considered benign. There is mild compressive atelectasis or scarring in the medial right lower lobe adjacent to the hiatal hernia. Stable linear scarring in the basilar left lower lobe. Cholecystectomy. 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 Multiple small cystic lesions of the pancreas head are noted. These are similar to prior study. Splenectomy. No liver lesion is seen. Moderate calcification of the abdominal aorta, no aneurysm. There are bilateral renal cysts that do not require follow-up. No hydronephrosis. There is no dilated small bowel. Distal colon is decompressed, limiting evaluation. The appendix is normal. No colon wall thickening is seen. No abdominal adenopathy or free fluid. The urinary bladder is normal. Hysterectomy. No pelvic free fluid. Severe disc space narrowing and reactive endplate sclerosis and vacuum disc phenomenon of L1/L2 and T12/L1. There is mild left convexity thoracolumbar scoliosis. There is grade 2 anterolisthesis of L4 on L5. IMPRESSION: 1. No acute abnormality in the chest, abdomen, or pelvis. 2. Moderate-sized hiatal hernia. 3. There are multiple small cystic lesions of the pancreas head. Primary consideration is intraductal papillary mucinous neoplasm. Electronically signed by: Fuad Hill MD (07/07/2021 6:07 AM) [facility] DICTATED AND SIGNED BY: FUAD HILL MD DATE: 07/07/21 0553 CC: RHIANNA PÉREZ MD; AVINASH BRAR MD ~[facility] 0 ][address] [address] IMAGING REPORT Signed PATIENT: RENITA VAUGHAN ACCOUNT: [id number] : 1945 LOCATION: ER AGE: 75 SEX: F EXAM STATUS: REG ER ORD. PHYSICIAN: RHIANNA PÉREZ MD REASON: LEFT FLANK PAIN, BREAST CANCER, PARTIAL PANCREATECTOMY PROCEDURE: ACUTE ABDOMEN SERIES ACUTE ABDOMEN SERIES History: Left flank pain, breast cancer, partial pancreatectomy. Comparison: None. Findings: Frontal chest and supine and upright views of the abdomen. Cardiac size upper limits of normal. There is no pleural effusion or pneumothorax. There is mild discoid atelectasis or scarring in the left lung base. Moderate-sized hiatal hernia. No pneumoperitoneum is identified. Cholecystectomy. There is suture material in the right upper abdomen. There is stool in the proximal colon. There is no dilated small bowel. Bowel gas pattern is nonobstructive. No obvious organomegaly. There is minimal lumbar scoliosis. IMPRESSION: 1. Mild discoid atelectasis or scarring in the left lung base. 2. Nonobstructive bowel gas pattern. 3. Moderate-sized hiatal hernia. Electronically signed by: Fuad Hill MD (07/07/2021 4:31 AM) [facility] DICTATED AND SIGNED BY: FUAD HILL MD DATE: 07/07/21 0426 CC: RHIANNA PÉREZ MD; AVINASH BRAR MD ~[facility] 0 Heart Score: C/O Chest Pain: N/A Risk Factors: Risk Factors: DM, Current or recent (<one month) smoker, HTN, HLP, family history of CAD, obesity. Risk Scores: Score 0 - 3: 2.5% MACE over next 6 weeks - Discharge Home Score 4 - 6: 20.3% MACE over next 6 weeks - Admit for Clinical Observation Score 7 - 10: 72.7% MACE over next 6 weeks - Early Invasive Strategies Course & Med Decision Making: Course & Med Decision Making Pertinent Labs and Imaging studies reviewed. (See chart for details) Pt. films sent to . Pt. to followup with Renal/ and Urology at and her Oncologist. Patient take Zofran for nausea vomiting. May take Vicoprofen up to 4 times a day for marked pain. Follow-up primary care. Return if any concerns. Impression: 1. Renal Colic 2. Renal Cysts 3. Mild Hypokalemia 3.3 4. Elevated Glucose - 144 5. Multiple Cystic Lesion of Pancreatic head- consideration of intraductal papillary Mucinous nepplasm [] Dragon Disclaimer: Dragmontse Disclaimer: This electronic medical record was generated, in whole or in part, using a voice recognition dictation system. Departure Departure: Referrals: AVINASH BRAR MD (PCP) Scripts Hydrocodone/Ibuprofen (HYDROCODONE-IBUPROFEN 7.5-200 ) 1 Each Tablet 1 TAB PO PRN Q6HRS PRN for PAIN, #30 TAB 0 Refills Prov: RHIANNA PÉREZ MD 07/07/21 Hydrocodone/Ibuprofen (HYDROCODONE-IBUPROFEN 7.5-200 ) 1 Each Tablet 1 TAB PO PRN Q6HRS PRN for PAIN, #30 TAB 0 Refills Prov: RHIANNA PÉREZ MD 07/07/21 Ondansetron Hcl (ONDANSETRON HCL) 8 Mg Tablet 8 MG PO QIDPRN for n/v, #30 TAB Prov: RHIANNA PÉREZ MD 07/07/21 Dragon Disclaimer This chart was dictated in whole or in part using Voice Recognition software in a busy, high-work load, and often noisy Emergency Department environment. It may contain unintended and wholly unrecognized errors or omissions. Dragon Disclaimer This chart was dictated in whole or in part using Voice Recognition software in a busy, high-work load, and often noisy Emergency Department environment. It may contain unintended and wholly unrecognized errors or omissions. RHIANNA PÉREZ MD Jul 07, 2021 03:04
[2021-07-07] MEDS ORDERED: KETOROLAC 30 MG/ML VIAL. IVP ONE (03:30)
[2021-07-07] MEDS ORDERED: FAMOTIDINE 20 MG/2 ML VIAL IVP ONE (03:30)
[2021-07-07] MEDS ORDERED: IV RINGERS SOLUTION,LACTATED 1,000 ML IV SCH (03:30)
[2021-07-07] MEDS ORDERED: ONDANSETRON PF 4 MG/2 ML VIAL. IVP ONE (03:30)
[2021-07-07 03:54] LABS: BASO # 0.1 x10^3/uL (0.0-0.2); BASO % 1 % (0-3); EOS # 0.3 x10^3/uL (0.0-0.7); EOS % 3 % (0-3); HEMATOCRIT 43.6 % (36.0-47.0); HEMOGLOBIN 13.8 g/dL (12.0-15.5); LYMPH # 2.3 x10^3/uL (1.0-4.8); LYMPH % 21 % (24-48); MEAN CORPUSCULAR HEMOGLOBIN 31 pg (25-35); MEAN CORPUSCULAR HGB CONC 32 g/dL (31-37); MEAN CORPUSCULAR VOLUME 98 fL (79-100); MONO # 1.6 x10^3/uL (0.0-1.1); MONO % 15 % (0-9); NEUT # 6.7 x10^3uL (1.8-7.7); NEUT % 61 % (31-73); PLATELET COUNT 207 x10^3/uL (140-400); RED BLOOD COUNT 4.43 x10^6/uL (3.50-5.40); RED CELL DISTRIBUTION WIDTH 16.8 % (11.5-14.5)
[2021-07-07 04:01] LABS: CALCIUM 9.8 mg/dL (8.5-10.1); CREATININE 0.9 mg/dL (0.6-1.0); POTASSIUM 3.3 mmol/L (3.5-5.1)
[2021-07-07 04:06] LABS: ALBUMIN 3.7 g/dL (3.4-5.0); DIRECT BILIRUBIN 0.2 mg/dL (0.0-0.2); TOTAL BILIRUBIN 0.6 mg/dL (0.2-1.0); TOTAL PROTEIN 6.5 g/dL (6.4-8.2)
[2021-07-07] MEDS ORDERED: MAGNESIUM HYDROXIDE 2,400 MG/30 ML ORAL.SUSP. PO ONE (04:30)
--- NOTE | 2021-07-07 04:34 | RAD ---
ACUTE ABDOMEN SERIES History: Left flank pain, breast cancer, partial pancreatectomy. Comparison: None. Findings: Frontal chest and supine and upright views of the abdomen. Cardiac size upper limits of normal. There is no pleural effusion or pneumothorax. There is mild disc oid atelectasis or scarring in the left lung base. Moderate-sized hiatal hernia. No pneumoperitoneum is identified. Cholecystectomy. There is suture material in the right upper abdomen. There is stool in the proximal colon. There is no dilated small bowel. Bowel gas pattern is nonobstructive. No obvious organomegaly. There is minimal lumbar scoliosis. IMPRESSION: 1. Mild discoid atelectasis or scarring in the left lung base. 2. Nonobstructive bowel gas pattern. 3. Moderate-sized hiatal hernia. Electronically signed by: Fuad Hill MD (07/07/2021 4:31 AM) [facility]
[2021-07-07 04:45] LABS: BACTERIA,URINE FEW /HPF (0-FEW); BILIRUBIN,URINE NEG (NEG); CLARITY,URINE CLEAR; COLOR,URINE YELLOW; GLUCOSE,URINE NEG (NEG); NITRITE,URINE NEG (NEG); RBC,URINE 0 /HPF (0-2); SQUAMOUS EPITHELIAL CELL,UR FEW /LPF; UROBILINOGEN,URINE 0.2 mg/dL (0.2 mg/dL)
[2021-07-07 04:48] LABS: INFLUENZA A PATIENT NEGATIVE (NEGATIVE); INFLUENZA B PATIENT NEGATIVE (NEGATIVE)
[2021-07-07] MEDS ORDERED: IOHEXOL 300 MG/ML 75 ML VIAL. IV ONE (05:15)
[2021-07-07] MEDS ORDERED: CONTRAST GIVEN. MC PRN (05:15)
[2021-07-07] MEDS ORDERED: HYDR-1179 PO ×2 (06:03→06:07)
[2021-07-07] MEDS ORDERED: ONDA-85 PO (06:03)
[2021-07-07 06:08] VITALS: BP 145/88
--- NOTE | 2021-07-07 06:09 | RAD ---
PQRS Compliance Statement: One or more of the following individualized dose reduction techniques were utilized for this examinat ion: 1. Automated exposure control 2. Adjustment of the mA and/or kV according to patient size 3. Use of iterative reconstruction technique CT CHEST+ABD+PELVIS W Clinical Indication: Reason: Lt. flank pain and abd., pain, hx breast, Comparison: CT chest without contrast September 18, 2018. CT abdomen with contrast December 19, 2017. Technique: Helical CT imaging of the chest, abdomen and pelvis is performed after 75 cc of Omnipaque 300 IV contrast. Oral contrast not administered. Findings: Left axillary surgical clips. There are surgical clips in the left breast. There is no central pulmon melissa embolus or thoracic aortic dissection. Great vessels are normal caliber. There is no mediastinal or hilar adenopathy. The cardiac size is normal, no pericardial effusion. There is a moderate sized h iatal hernia. No pleural abnormality is seen. The central airways are patent. 6 mm right middle lobe pulmonary nodu le is unchanged, image 51. Nodule is therefore considered benign. There is mild compressive atelectas is or scarring in the medial right lower lobe adjacent to the hiatal hernia. Stable linear scarring i n the basilar left lower lobe. Cholecystectomy. 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 Multiple small cystic lesions of the pancreas head a re noted. These are similar to prior study. Splenectomy. No liver lesion is seen. Moderate calcificat ion of the abdominal aorta, no aneurysm. There are bilateral renal cysts that do not require follow-u p. No hydronephrosis. There is no dilated small bowel. Distal colon is decompressed, limiting evaluation. The appendix is n ormal. No colon wall thickening is seen. No abdominal adenopathy or free fluid. The urinary bladder is normal. Hysterectomy. No pelvic free fluid. Severe disc space narrowing and reactive endplate sclerosis and vacuum disc phenomenon of L1/L2 and T 12/L1. There is mild left convexity thoracolumbar scoliosis. There is grade 2 anterolisthesis of L4 o n L5. IMPRESSION: 1. No acute abnormality in the chest, abdomen, or pelvis. 2. Moderate-sized hiatal hernia. 3. There are multiple small cystic lesions of the pancreas head. Primary consideration is intraducta l papillary mucinous neoplasm. Electronically signed by: Fuad Hill MD (07/07/2021 6:07 AM) [facility]ITALAlex[facility]
--- NOTE | 2021-07-07 06:28 | EKG ---
[address] [address] Test Date: 2021-07-07 Test Time: 03:42:26 Pat Name: RENITA VAUGHAN Department: Room: Gender: F Chain Saw Operator: : 1945 Requested By: RHIANNA PÉREZ Order Number: [id number] Reading MD: Ricki Upton Measurements Intervals [place] Rate: 74 P: -30 ME: 186 QRS: 60 QRSD: 96 T: -19 QT: 392 QTc: 436 Interpretive Statements SINUS RHYTHM QRS(T) CONTOUR ABNORMALITY CONSISTENT WITH INFERIOR INFARCT AGE UNDETERMINED ABNORMAL ECG Electronically Signed On 07-08-2021 9:24:09 [facility] by Ricki Upton
[2021-07-07] MEDS ORDERED: MORPHINE SULFATE 10 MG/ML SYRINGE. ONE (06:49)
[2021-07-07] MEDS ORDERED: MORPHINE SULFATE 10 MG/ML SYRINGE. SQ ONE (07:00)
== END 2021-07-07 06:57 | disposition home or self-care (01) ==
LOC: ER 03:01
DX: N23 Unspecified renal colic (principal); N28.1 Cyst of kidney, acquired; E87.6 Hypokalemia; R73.9 Hyperglycemia, unspecified; K86.2 Cyst of pancreas; E78.00 Pure hypercholesterolemia, unspecified; I10 Essential (primary) hypertension; E03.9 Hypothyroidism, unspecified; Z20.822 Contact with and (suspected) exposure to COVID-19; Z87.442 Personal history of urinary calculi; Z90.49 Acquired absence of other specified parts of digestive tract; Z88.8 Allergy status to other drugs, medicaments and biological substances
CPT/HCPCS: 36415; 71260; 74022; 74177; 80048; 80076; 81001; 82550; 84484; 85025; 85610; 85730; 87086; 87428; 93005; 96361; 96372; 96374; 99285; J1885; J2270; J7120; Q9967; 96360